=== PATIENT | male | born 1960 | race Caucasian/White ===

== ENCOUNTER 2020-02-19 08:26 | Emergency (ER) | payer BC ==
[~2020-02-19] VITALS: Ht 188 cm; Wt 118.2 kg
[~2020-02-19 08:26] MED LIST: DIPH25CA83 PO; NO HOME MEDS
[2020-02-19 08:35] VITALS: BP 180/104
--- NOTE | 2020-02-19 08:58 | NUR ---
YE Hayes at bedside.
[2020-02-19] MEDS ORDERED: CHLO25CA10 PO (09:02)
== END 2020-02-19 09:22 | disposition home or self-care (01) ==
LOC: ER 08:27
DX: F10.10 Alcohol abuse, uncomplicated (principal); R68.83 Chills (without fever); R19.7 Diarrhea, unspecified; I48.91 Unspecified atrial fibrillation; F32.9 Major depressive disorder, single episode, unspecified; Z79.899 Other long term (current) drug therapy; Y90.9 Presence of alcohol in blood, level not specified
CPT/HCPCS: 99283

== ENCOUNTER 2025-05-14 08:15 | Outpatient (CLI) | payer BC, OTHER ==
[~2025-05-14 08:15] MED LIST changes: +CHLO25CA10 PO
--- NOTE | 2025-05-14 09:38 | RADIOLOGY REPORT ---
[facility] INDICATION: ARTHRITIS COMPARISON: None TECHNIQUE: 3 views of the cervical spine were obtained. FINDINGS: The cervical vertebral alignment is normal. The predental space is normal. Multilevel degenerative changes most severe at C3-C4 through C6-C7 with moderate neural foraminal and spinal canal stenosis No acute fracture, vertebral compression deformity or aggressive osseous lesions. The imaged lung apices are unremarkable. IMPRESSION: No acute fracture.
--- NOTE | 2025-05-14 09:38 | RADIOLOGY REPORT ---
INDICATION: ARTHRITIS COMPARISON: None TECHNIQUE: 3 views of the lumbar spine were obtained. FINDINGS: The lumbar vertebral alignment is normal. multilevel degenerative changes most severe at L1-L2 through L4-L5 causing moderate neural foraminal and spinal canal stenosis No acute fracture, vertebral compression deformity or aggressive osseous lesions. The paravertebral soft tissues are grossly unremarkable. IMPRESSION: No acute fracture or subluxation.
== END 2025-05-14 23:59 | disposition home or self-care (01) ==
LOC: RAD 08:15
PROVIDERS: ATTEND Chiropractor
DX: M47.816 Spondylosis without myelopathy or radiculopathy, lumbar region (principal); M48.061 Spinal stenosis, lumbar region without neurogenic claudication; M47.812 Spondylosis without myelopathy or radiculopathy, cervical region; M13.80 Other specified arthritis, unspecified site; M48.02 Spinal stenosis, cervical region
CPT/HCPCS: 72040; 72100